=== PATIENT | female | born 1965 | race Two or more races ===

== ENCOUNTER 2017-02-16 07:51 | Emergency (ER) | payer OTHER ==
[2017-02-16] MEDS ORDERED: IBUPROFEN 600 MG TABLET ONE (08:18)
== END 2017-02-16 08:40 | disposition home or self-care (01) ==
LOC: ED 07:51
DX: J20.9 Acute bronchitis, unspecified (principal); I10 Essential (primary) hypertension; E11.9 Type 2 diabetes mellitus without complications; E78.5 Hyperlipidemia, unspecified; E78.00 Pure hypercholesterolemia, unspecified
CPT/HCPCS: 99283 ×2; 93005; A9270